=== PATIENT | female | born 1970 | race Caucasian/White ===

== ENCOUNTER → 2020-09-12 | Outpatient (CLI) | payer OTHER ==
[2020-09-12 09:54] LABS: RED BLOOD COUNT 5.5 M/UL (4.00-5.10); WHITE BLOOD COUNT 5.7 K/UL (4.5-11.0)
[2020-09-12 10:13] LABS: BUN/CREATININE RATIO 22 (0-10)
[2020-09-13 06:12] LABS: HIV SCREEN 4TH GENERATION WRFX Non Reactive (Non Reactive)
[2020-09-13 10:16] LABS: HBSAG SCREEN Negative (Negative); HEPATITIS B SURF AB QUANT 227.8 mIU/mL (Immunity>9.9)
[2020-09-13 18:11] LABS: AMPHETAMINES, URINE Negative ng/mL (Cutoff=1000); BARBITURATE Negative ng/mL (Cutoff=200); BENZODIAZEPINES Negative ng/mL (Cutoff=200); CANNABINOIDS Negative ng/mL (Cutoff=20); COCAINE (METABOLITE) Negative ng/mL (Cutoff=300); CREATININE 276.2 mg/dL (20.0-300.0); MEPERIDINE Negative ng/mL (Cutoff=200); METHADONE Negative ng/mL (Cutoff=300); OPIATES Negative ng/mL (Cutoff=300); PHENCYCLIDINE Negative ng/mL (Cutoff=25); PROPOXYPHENE Negative ng/mL (Cutoff=300)
[2020-09-13 20:11] LABS: HCV LOG10 6.961 (.); HEPATITIS C QUANTITATION 9140000 IU/mL (.)
[2020-09-14 02:12] LABS: ALT (SGPT) P5P 82 IU/L (0-40); APOLIPOPROTEIN A-1 112 mg/dL (116-209); BILIRUBIN, TOTAL 0.7 mg/dL (0.0-1.2); FIBROSIS SCORE 0.69 (0.00-0.21); GGT 47 IU/L (0-60); HAPTOGLOBIN 99 mg/dL (42-296); NECROINFLAMMAT ACTIVITY GRADE A3-Severe activity (.); NECROINFLAMMAT ACTIVITY SCORE 0.63 (0.00-0.17)
[2020-09-14 07:12] LABS: HEP B CORE AB, IGM Negative (Negative)
[2020-09-14 19:11] LABS: HEPATITIS C GENOTYPE 1a (.)
== END ==
LOC: US 09-07 09:00
PROVIDERS: Nurse Practitioner Acute Care
DX: B18.2 Chronic viral hepatitis C (principal); K74.02 Hepatic fibrosis, advanced fibrosis; K82.4 Cholesterolosis of gallbladder; K83.8 Other specified diseases of biliary tract
CPT/HCPCS: 36415; 76705; 80053; 80076; 80307; 81596; 82172; 82247; 82977; 83010; 84460; 84703; 85027; 85610; 86317; 86704; 86708; 87340; 87389; 87522; 87902

== ENCOUNTER → 2020-10-24 | Outpatient (CLI) | payer OTHER | LOC: MRI 10-17 14:00 | DX: R74.8 Abnormal levels of other serum enzymes (principal); K83.8 Other specified diseases of biliary tract; K82.4 Cholesterolosis of gallbladder; R59.0 Localized enlarged lymph nodes; K74.60 Unspecified cirrhosis of liver | CPT/HCPCS: 74183; A9577 ==

== ENCOUNTER → 2020-11-12 | Outpatient (CLI) | payer OTHER ==
[2020-11-12 11:29] LABS: RED BLOOD COUNT 5.06 M/UL (4.00-5.10); WHITE BLOOD COUNT 3.2 K/UL (4.5-11.0)
[2020-11-12 12:00] LABS: BUN/CREATININE RATIO 12 (0-10)
[2020-11-14 18:12] LABS: HCV LOG10 2.279 (.); HEPATITIS C QUANTITATION 190 IU/mL (.)
== END ==
LOC: LAB 10:26
PROVIDERS: Nurse Practitioner Acute Care
DX: K74.02 Hepatic fibrosis, advanced fibrosis (principal); B18.2 Chronic viral hepatitis C; Z79.899 Other long term (current) drug therapy
CPT/HCPCS: 80053; 84703; 85027; 85610; 87522

== ENCOUNTER → 2021-04-15 | Outpatient (CLI) | payer OTHER ==
[2021-04-15 17:09] LABS: HEMOGLOBIN 15.6 gm/dl (12.3-15.3); RED BLOOD COUNT 5.61 M/UL (4.00-5.10); WHITE BLOOD COUNT 5.2 K/UL (4.5-11.0)
[2021-04-15 17:33] LABS: BUN/CREATININE RATIO 12 (0-10)
== END ==
LOC: LAB 16:17
PROVIDERS: Nurse Practitioner Acute Care
DX: B18.2 Chronic viral hepatitis C (principal); K74.02 Hepatic fibrosis, advanced fibrosis; R74.8 Abnormal levels of other serum enzymes; Z20.5 Contact with and (suspected) exposure to viral hepatitis
CPT/HCPCS: 36415; 80053; 84703; 85027; 85610; 87517; 87522

== ENCOUNTER → 2021-04-25 | Outpatient (CLI) | payer OTHER | LOC: MAMO 03-22 09:00 | DX: Z12.31 Encounter for screening mammogram for malignant neoplasm of breast (principal); F11.20 Opioid dependence, uncomplicated; E03.9 Hypothyroidism, unspecified; B19.20 Unspecified viral hepatitis C without hepatic coma | CPT/HCPCS: 77063; 77067 ==

== ENCOUNTER → 2021-10-01 | Outpatient (CLI) | payer OTHER | LOC: EXRD 09-23 10:30 | DX: K74.60 Unspecified cirrhosis of liver (principal); K82.8 Other specified diseases of gallbladder | CPT/HCPCS: 76700 ==

== ENCOUNTER → 2021-11-15 | Outpatient (CLI) | payer OTHER ==
[2021-11-15 13:14] LABS: HEMOGLOBIN 13.7 gm/dl (12.3-15.3); RED BLOOD COUNT 4.96 M/UL (4.00-5.10); WHITE BLOOD COUNT 3.6 K/UL (4.5-11.0)
[2021-11-15 13:37] LABS: BUN/CREATININE RATIO 19 (0-10)
== END ==
LOC: LAB 12:40
PROVIDERS: Nurse Practitioner Acute Care
DX: K74.60 Unspecified cirrhosis of liver (principal)
CPT/HCPCS: 36415; 80053; 82103; 82105; 82728; 83540; 83550; 85027; 85610

== ENCOUNTER → 2022-01-02 | Outpatient (CLI) | payer OTHER | LOC: NM 13:37 | DX: R10.11 Right upper quadrant pain (principal) | CPT/HCPCS: 78227; A9537 ==